=== PATIENT | male | born 1970 | race Caucasian/White ===

== ENCOUNTER 2016-11-15 10:51 | Day surgery (SDC) | payer OTHER ==
[~2016-11-15] VITALS: Ht 167.6 cm; Wt 63.5 kg
[2016-11-15 12:18] VITALS: Ht 167.6 cm; Wt 63.5 kg
[2016-11-15] MEDS ORDERED: LAMO200T PO (12:27)
[2016-11-15] MEDS ORDERED: OMEP20CA16 PO (12:27)
[2016-11-15] MEDS ORDERED: [UNRECOGNIZED DRUG - OTHER] (12:27)
[2016-11-15] MEDS ORDERED: LOSA50TA6 PO (12:27)
[2016-11-15 12:43] VITALS: BP 141/67; PULSE 60; RESP 24
[2016-11-15] MEDS ORDERED: PROPOFOL 20 ML ONE (13:03)
[2016-11-15] MEDS ORDERED: FENTAnyl 50 MCG/ML VIAL ONE (13:03)
[2016-11-15 13:46] VITALS: BP 119/80; PULSE 52; RESP 20
--- NOTE | 2016-11-15 13:46 | GILP ---
DATE OF PROCEDURE: NAME OF PROCEDURES: Esophagogastroduodenoscopy and biopsy. SURGEON: Darlin Rey MD PREOPERATIVE DIAGNOSIS: Chronic heartburn. POSTOPERATIVE DIAGNOSES: 1. Hiatal hernia. 2. Gastroesophageal reflux disease. 3. Gastritis. 4. Gastric nodule near the cardia of the stomach and biopsies were taken for histopathology. INDICATION FOR THE PROCEDURE: Mr. Kg Mcginnis is a 46-year-old male patient who had upper abdom inal pain and chronic heartburn, not responding to therapy. Patient was scheduled for endoscopic ex amination for further evaluation. The procedure and possible complications were well explained to the patient. The patient understood and consented to the procedure. DESCRIPTION OF PROCEDURE: Under the influence of anesthesia, the gastroscope was carefully introduc ed into the esophagus and under direct vision, it was advanced to the stomach and through the pyloru s into the duodenal bulb and descending duodenum. FINDINGS: ESOPHAGUS: The patient had gastroesophageal reflux disease and small hiatal hernia. STOMACH: He had gastritis. The patient also had a gastric nodule near the cardia of the stomach an d biopsies were taken for histopathology. DUODENUM: Normal. The patient tolerated the procedure very well and there was no complication from the procedure. At the end of the procedure, he was awake with stable vital signs and he was discharged home to the car e of his family. IMPRESSION: 1. Hiatal hernia. 2. Gastroesophageal reflux disease. 3. Gastritis. 4. Gastric nodule near the cardia of the stomach and biopsies were taken for histopathology. PLAN: 1. Continue omeprazole. 2. Add Zantac 300 mg p.o. at bedtime. 3. Await histopathology report. Dictated By: DARLIN SEVERINO/BENNETT Conf#: [id number] DID#: [id number]
== END 2016-11-15 14:01 | disposition home or self-care (01) ==
LOC: GIL 10:51
PROVIDERS: ATTEND Internal Medicine Gastroenterology
DX: K21.9 Gastro-esophageal reflux disease without esophagitis (principal); K44.9 Diaphragmatic hernia without obstruction or gangrene; K29.70 Gastritis, unspecified, without bleeding; I10 Essential (primary) hypertension
CPT/HCPCS: 43239; 88305; 88312; J3010

== ENCOUNTER 2018-01-14 16:35 | Emergency (ER) | END 2018-01-14 21:14 | disposition home or self-care (01) ==